=== PATIENT | female | born 1975 | race Caucasian/White ===

== ENCOUNTER 2017-09-30 21:18 | Emergency (ER) | payer OTHER ==
[2017-09-30 21:48] VITALS: BP 113/64
--- NOTE | 2017-09-30 22:23 | UC ---
Throat Pain/Nasal Karthik HPI - HPI Summary HPI Summary: Pt with 3 weeks cough, productive yellow. pt with progressive right ear pain and fullness sinus congestion. no fever, chills rash No cp, sob. + wheeze no abd pain no n/v/d + po + sick contacts + OTC apap, mucinex pt's medications reviewed this visit - History of Current Complaint Chief Complaint: UCRespiratory Stated Complaint: COUGH,CONGESTION,EARS Time Seen by Provider: 09/30/17 22:22 Hx Last Menstrual Period: 2013. Pain Intensity: 2 - Allergies/Home Medications Allergies/Adverse Reactions: Allergies Allergy/AdvReac Type Severity Reaction Status Date / Time codeine Allergy Vomiting Verified 09/30/17 21:56 nitrofurantoin Allergy Hives Verified 09/30/17 21:56 [From Macrobid] pregabalin [From Lyrica] Allergy Numbness Verified 09/30/17 21:56 Sulfa (Sulfonamide Allergy Vomiting Verified 09/30/17 21:56 Antibiotics) PMH/Surg Hx/FS Hx/Imm Hx Previously Healthy: Yes - Surgical History Surgical History: Yes Surgery Procedure, Year, and Place: [facility] , BREAST BIOPSY 10/16/12 [facility] (BIOPSY MARKER ATEK CONDITONAL 1.5- 3T.) - Social History Occupation: Disabled Lives: With Family Alcohol Use: None Substance Use Type: None Smoking Status (MU): Former Smoker Review of Systems Constitutional: Fatigue Skin: Negative Eyes: Negative ENT: Ear Ache, Nasal Discharge, Sinus Congestion Respiratory: Negative Cardiovascular: Negative Gastrointestinal: Negative Genitourinary: Negative Motor: Negative Neurovascular: Negative Musculoskeletal: Negative Neurological: Negative Psychological: Negative All Other Systems Reviewed And Are Negative: Yes Physical Exam Triage Information Reviewed: Yes Appearance: Well-Appearing, No Pain Distress, Well-Nourished Vital Signs: Initial Vital Signs Temp 97.5 F 09/30/17 21:44 Pulse 56 09/30/17 21:44 Resp 16 09/30/17 21:44 BP 113/64 09/30/17 21:44 Pulse Ox 100 09/30/17 21:44 Vital Signs Reviewed: Yes Eye Exam: Normal Eyes: Positive: Conjunctiva Clear ENT: Positive: Hearing grossly normal, Pharyngeal erythema, TM bulging, TM red, Uvula midline, Other - right TM ++ fluid, erythema, left tm mild fluid turbinates inflammed and boggy + PND + erythema no exudate. Negative: Sinus tenderness Dental Exam: Normal Neck exam: Normal Neck: Positive: 1 Respiratory Exam: Normal Respiratory: Positive: Chest non-tender, Lungs clear, Normal breath sounds, No respiratory distress, Other: - cough Cardiovascular Exam: Normal Abdominal Exam: Normal Musculoskeletal Exam: Normal Neurological Exam: Normal Psychological Exam: Normal Skin Exam: Normal Throat Pain/Nasal Course/Dx - Course Course Of Treatment: Pt with 3 weeks progressive URI. now with rightTM. abx. hydrate. motrin/apap. flonase. secretion precaution. return precaution - Differential Dx/Diagnosis Provider Diagnoses: URI. Right OM Discharge - Sign-Out/Discharge Documenting (check all that apply): Discharge - Discharge Plan Condition: Stable Disposition: HOME Prescriptions: Amoxicillin/Clavulanate TAB* [Augmentin TAB 875*] 875 mg PO BID #19 tab Fluconazole [Diflucan 150 MG (NF)] 150 mg PO ONCE PRN #1 tab PRN Reason: yeast infection Fluticasone NASAL SPRAY 50MCG* [Flonase NASAL SPRAY 50MCG*] 2 spray BOTH NARES DAILY #1 btl Patient Education Materials: Ear Infection (ED) Referrals: DEBORAH Ovalle [Primary Care Provider] - Additional Instructions: - Stay well hydrated. Drink plenty of non-alcoholic, non-caffinated beverages. - Alternate ibuprofen (Advil, Motrin) 600mg and Tylenol every 3 hours for pain or fever. Take with food. Do NOT take for more than 4-5 days. - These infections are spread by secretions - do NOT share eating or drinking utensils - clean items you share with other people such as cell phones, computer mouse, TV remote, computer tablets,etc. Once you have been on antibiotics for 2 days, change your toothbrush and your pillowcase. - humidify the air in the room where you sleep - boil water, run a hot steam shower, vaporizer, cups of water by heat register - okay to take over the counter decongestant and cough medication - get plenty of restful sleep. - use nasal spray as instructed - you have been given a script for diflucan - okay to take as needed for yeast infection following your antibiotics - contact your doctor or return with questions or concerns - Billing Disposition and Condition Condition: STABLE Disposition: HOME
[2017-09-30] MEDS ORDERED: Amoxicillin/Clavulanate TAB* 875 MG PO ONE (22:30)
== END 2017-09-30 22:37 | disposition home or self-care (01) ==
LOC: UCCORT 21:18
DX: J06.9 Acute upper respiratory infection, unspecified (principal); H66.91 Otitis media, unspecified, right ear; Z88.1 Allergy status to other antibiotic agents; Z88.5 Allergy status to narcotic agent; Z88.2 Allergy status to sulfonamides; Z88.8 Allergy status to other drugs, medicaments and biological substances; Z87.891 Personal history of nicotine dependence
CPT/HCPCS: 99212; A9270-GY; G0463

== ENCOUNTER 2017-11-09 13:31 | Emergency (ER) | payer OTHER ==
[2017-11-09 14:23] VITALS: BP 110/56
[2017-11-09] MEDS ORDERED: Tetan/Diph/Pertus SYR(Tdap)* 0.5 ML SYR(BOOSTRIX) use SYR IM ONE (14:47)
--- NOTE | 2017-11-09 17:51 | UC ---
Lower Extremity/Ankle HPI - HPI Summary HPI Summary: Pt. is a 42 y.o female who presents to the ER for a left leg injury that occurred today. Pt. states she has a hx of back issues and is following with neurosx. She is scheduled for an MRI. She noted chronic tingling in legs. She notes today she stepped into an open floor vent at her house and fell forward. Is able to ambulate with pain. Abrasions to left lower leg. Unaware of last tetanus immunization. No head injury. Symptoms are mild in severity. Walking makes symptoms worse. Rest makes symptoms better. - History of Current Complaint Chief Complaint: UCBackPain Stated Complaint: LOWER BACK Time Seen by Provider: 11/09/17 14:22 Hx Obtained From: Patient Hx Last Menstrual Period: 2013. Pain Intensity: 6 Pain Scale Used: 0-10 Numeric - Allergies/Home Medications Allergies/Adverse Reactions: Allergies Allergy/AdvReac Type Severity Reaction Status Date / Time codeine Allergy Vomiting Verified 11/09/17 14:14 methylprednisolone Allergy See Comment Verified 11/09/17 14:14 [From Solu-Medrol] nitrofurantoin Allergy Hives Verified 11/09/17 14:14 [From Macrobid] pregabalin [From Lyrica] Allergy Numbness Verified 11/09/17 14:14 Sulfa (Sulfonamide Allergy Vomiting Verified 11/09/17 14:14 Antibiotics) PMH/Surg Hx/FS Hx/Imm Hx Previously Healthy: Yes - Surgical History Surgical History: Yes Surgery Procedure, Year, and Place: RT BREAST BIOPSY 03/12 [place] [facility] BREAST BIOPSY 10/16/12 [facility] (BIOPSY MARKER ATEK CONDITONAL 1.5- 3T.). Hysterectomy - Social History Alcohol Use: None Substance Use Type: None Smoking Status (MU): Former Smoker Review of Systems Neurovascular: Negative Musculoskeletal: Other: - Pain to left leg. Abrasions to left lower leg. Neurological: Paresthesia - Chronic paresthesias to legs. Is Patient Immunocompromised?: No All Other Systems Reviewed And Are Negative: Yes Physical Exam Triage Information Reviewed: Yes Appearance: Well-Appearing - Pt. sitting on chair in NAD. Mother present. Vital Signs: Initial Vital Signs Temp 97.7 F 11/09/17 14:15 Pulse 68 11/09/17 14:15 Resp 17 11/09/17 14:15 BP 110/56 11/09/17 14:15 Pulse Ox 99 11/09/17 14:15 Eye Exam: Normal Neck: Positive: Supple Musculoskeletal: Positive: Other: - 5/5 strength in bilateral lower extremities. Superficial abrasions to left lower leg. No bony tenderness to foot , ankle, or knee. Neurological Exam: Normal Skin: Positive: Other - Abrasions to left lower leg. Lower Extremity Course/Dx - Course Course Of Treatment: Pt. presenting for evaluation of a left leg injury. She did sustained superficial abrasions. Wounds were cleaned and dressed. Tetanus updated. She has no bony tenderness on exam. No xrays ordered. Advised tylenol or motrin for pain as directed. To ice and elevate. Close f.u with PCP. - Differential Dx/Diagnosis Differential Diagnosis/HQI/PQRI: Fracture (Closed), Sprain, Strain Provider Diagnoses: 1. Leg sprain 2. Abrasion Discharge - Sign-Out/Discharge Documenting (check all that apply): Discharge/Admit/Transfer - Discharge Plan Condition: Good Disposition: HOME Patient Education Materials: Abrasion (ED), Leg Sprain (ED) Referrals: Mireya Treviño MD [Primary Care Provider] - Additional Instructions: Follow up with PCP Keep wounds clean and dry Tylenol or Motrin for pain as directed Return to UC or go to ER if symptoms change or worsen - Billing Disposition and Condition Condition: GOOD Disposition: HOME
== END 2017-11-09 15:10 | disposition home or self-care (01) ==
LOC: UCCORT 13:31
DX: S86.812A Strain of other muscle(s) and tendon(s) at lower leg level, left leg, initial encounter (principal); S80.812A Abrasion, left lower leg, initial encounter; W17.89XA Other fall from one level to another, initial encounter; Y93.9 Activity, unspecified; Y92.009 Unspecified place in unspecified non-institutional (private) residence as the place of occurrence of the external cause; Z88.5 Allergy status to narcotic agent; Z88.2 Allergy status to sulfonamides; Z88.8 Allergy status to other drugs, medicaments and biological substances; Z87.891 Personal history of nicotine dependence
CPT/HCPCS: 90715; 99211; G0463

== ENCOUNTER 2019-01-05 21:25 | Emergency (ER) | payer SELFPAY ==
[2019-01-05 21:48] VITALS: BP 119/66
--- NOTE | 2019-01-05 22:57 | UC ---
Lower Extremity/Ankle HPI - HPI Summary HPI Summary: 43-year-old woman comes in with a chief complaint of right ankle and foot pain. 2 days ago she rolled her right ankle with an inversion. Pain is primarily in the lateral aspect of the ankle but also goes into the foot. She has been able to walk on it but with pain. Patient has a chronic neuropathy of the leg that's been investigated by neurosurgery. No new numbness no new weakness. - History of Current Complaint Chief Complaint: UCLowerExtremity Stated Complaint: RIGHT ANKLE CONCERN Time Seen by Provider: 01/05/19 22:46 Hx Last Menstrual Period: 2013. Pain Intensity: 7 - Allergies/Home Medications Allergies/Adverse Reactions: Allergies Allergy/AdvReac Type Severity Reaction Status Date / Time codeine Allergy Vomiting Verified 01/05/19 21:40 fluoxetine [From Prozac] Allergy See Comment Verified 01/05/19 21:40 methylprednisolone Allergy See Comment Verified 01/05/19 21:40 [From Solu-Medrol] nitrofurantoin Allergy Hives Verified 01/05/19 21:40 [From Macrobid] pregabalin [From Lyrica] Allergy Numbness Verified 01/05/19 21:40 Sulfa (Sulfonamide Allergy Vomiting Verified 01/05/19 21:40 Antibiotics) PMH/Surg Hx/FS Hx/Imm Hx Previously Healthy: Yes - CHRONIC RT LEG PARESTHESIA Endocrine History: Hypothyroidism - Surgical History Surgical History: Yes Surgery Procedure, Year, and Place: RT BREAST BIOPSY 03/[address] [place] [address] [facility] [place]. LT BREAST BIOPSY 10/16/12 [facility] (BIOPSY MARKER ATEK CONDITONAL 1.5-3T.);. HYSTERECTOMY - Family History Known Family History: Positive: Non-Contributory - Social History Alcohol Use: None Substance Use Type: None Smoking Status (MU): Former Smoker Review of Systems All Other Systems Reviewed And Are Negative: Yes Constitutional: Positive: Negative Skin: Positive: Negative Eyes: Positive: Negative ENT: Positive: Negative Respiratory: Positive: Negative Cardiovascular: Positive: Negative Gastrointestinal: Positive: Negative Motor: Positive: Other - SEE HPI Neurovascular: Positive: Other - SEE HPI Musculoskeletal: Positive: Other: - SEE HPI Neurological: Positive: Other - SEE HPI Psychological: Positive: Negative Is Patient Immunocompromised?: No Physical Exam Triage Information Reviewed: Yes Appearance: Well-Appearing, No Pain Distress, Well-Nourished Vital Signs: Initial Vital Signs Temp 97.2 F 01/05/19 21:40 Pulse 52 01/05/19 21:40 Resp 16 01/05/19 21:40 BP 119/66 01/05/19 21:40 Pulse Ox 99 01/05/19 21:40 Vital Signs Reviewed: Yes Eye Exam: Normal Eyes: Positive: Conjunctiva Clear Neck: Positive: Supple Respiratory: Positive: No respiratory distress Musculoskeletal: Positive: Other: - Right ankle is swollen the lateral aspect and tender to palpation the lateral aspect of the ankle and also the lateral aspect of the midfoot. Normal capillary refill normal dorsalis pedis pulse. Achilles tendon is intact and nontender. Ankle and toes have full range of motion. Neurological: Positive: Alert Psychological: Positive: Age Appropriate Behavior Skin Exam: Normal Lower Extremity Course/Dx - Course Course Of Treatment: I discussed the x-rays with the patient. I do not see a fracture radiologist reading is pending. Patient was placed in an Stanislav wrap adjustment by nursing patient neurovascular intact after placement. Also give the patient a cane. Plan is ice elevation anti-inflammatories and follow-up with either orthopedics or sports medicine if not completely improved. - Differential Dx/Diagnosis Provider Diagnosis: Right ankle sprain, Right foot sprain Discharge - Sign-Out/Discharge Documenting (check all that apply): Patient Departure All imaging exams completed and their final reports reviewed: No - Discharge Plan Condition: Stable Disposition: HOME Patient Education Materials: Ankle Sprain (ED), Foot Sprain (ED) Referrals: Anne Us MD [Primary Care Provider] - Ever Sanchez MD [Medical Doctor] - [facility] [Provider Group] Additional Instructions: FOLLOW UP WITH ORTHOPEDICS OR SPORTS MEDICINE IF NOT COMPLETELY IMPROVED. GET REEVALUATED SOONER IF WORSE OR ANY QUESTIONS OR CONCERNS. - Billing Disposition and Condition Condition: STABLE Disposition: Home
--- NOTE | 2019-01-06 09:05 | UC ---
- Progress Note Progress Note: xray report right ankle / right foot: REPORT AND IMPRESSION: #. Normal articular alignment at the ankle and foot. #. Negative for fracture or osteochondral lesion. #. 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 Remaining joint spaces are unremarkable. #. Soft tissue swelling most prominent over the medial aspect of the ankle through mid foot. Course/Dx - Diagnoses Provider Diagnoses: Right ankle sprain, Right foot sprain Discharge - Sign-Out/Discharge Documenting (check all that apply): Patient Departure All imaging exams completed and their final reports reviewed: Yes - Discharge Plan Condition: Stable Disposition: HOME Patient Education Materials: Ankle Sprain (ED), Foot Sprain (ED) Referrals: [facility] [Provider Group] Ever Sanchez MD [Medical Doctor] - Anne Us MD [Primary Care Provider] - Additional Instructions: FOLLOW UP WITH ORTHOPEDICS OR SPORTS MEDICINE IF NOT COMPLETELY IMPROVED. GET REEVALUATED SOONER IF WORSE OR ANY QUESTIONS OR CONCERNS. - Billing Disposition and Condition Condition: STABLE Disposition: Home
== END 2019-01-05 23:08 | disposition home or self-care (01) ==
LOC: UCCORT 21:25
DX: S93.401A Sprain of unspecified ligament of right ankle, initial encounter (principal); S93.601A Unspecified sprain of right foot, initial encounter; X50.1XXA Overexertion from prolonged static or awkward postures, initial encounter; Y92.9 Unspecified place or not applicable; M19.071 Primary osteoarthritis, right ankle and foot; G90.09 Other idiopathic peripheral autonomic neuropathy; Z88.1 Allergy status to other antibiotic agents; Z88.5 Allergy status to narcotic agent; Z88.2 Allergy status to sulfonamides; Z88.8 Allergy status to other drugs, medicaments and biological substances; Z87.891 Personal history of nicotine dependence
CPT/HCPCS: 99213; G0463

== ENCOUNTER 2019-09-22 13:58 | Emergency (ER) | payer OTHER ==
--- NOTE | 2019-09-22 14:24 | UC ---
Telehealth HPI HPI Summary: sore throat x 1 days pain is 4 out of 10 , worse with swallowing, better with Tylenol dry cough for 1 week, mild nasal congestion , denies any chest pain , no sob , no fever, no chills or body aches no recent travels, her son was tested for COVID19 with negative results no know COVID19 contact Telehealth PMH Endocrine/Hematology History: Reports: Hx Thyroid Disease Denies: Hx Diabetes Cardiovascular History: Denies: Hx Hypertension, Hx Pacemaker/ICD Respiratory History: Denies: Hx Asthma History: Denies: Hx Renal Disease Sensory History: Denies: Hx Hearing Aid Psychiatric History: Reports: Hx Panic Disorder - Cancer History Cancer Type, Location and Year: hypothyroid, anemic, vit D difficency - Surgical History Surgery Procedure, Year, and Place: RT BREAST BIOPSY 03/12 [place] AT [facility] ,. LT BREAST BIOPSY 10/16/12 [facility] (BIOPSY MARKER ATEK CONDITONAL 1.5-3T.);. HYSTERECTOMY Infectious Disease History: No - Family History Known Family History: Positive: Non-Contributory - Social History Alcohol Use: Occasionally Substance Use Type: Reports: None Smoking Status (MU): Former Smoker Telehealth ROS All Other Systems Reviewed And Are Negative: Yes Negative: Fever, Chills, Fatigue Eyes: Negative Positive: Sore Throat Positive: Cough. Negative: Shortness Of Breath Telehealth PE Telehealth Physical Exam: contacted the pt. via Zoom no vitals, no Physical exam was done Appearance: Positive: Well-Appearing, No Pain Distress Telehealth Course/Dx Provider Diagnoses: Pharyngitis Telehealth Disposition Provider Recommendation for Treatment: Urgent Care Telehealth Visit: Patient Consented Verbally to Telehealth Visit Telehealth Patient Statement: The patient should understand that they are communicating with their provider via a secure communication platform and that all the same privacy and confidentiality rules apply. They will also be responsible for copayments or coinsurances that apply to any Telehealth visit. Patient Identifiers: 2 Patient Identifiers Verified for Telehealth Visit Telehealth Visit Start Time: 14:00 Telehealth Visit End Time: 14:30 Telehealth Provider Attestation: The above services were appropriate to provide in a Telehealth setting.
== END 2019-09-22 14:38 | disposition home or self-care (01) ==
LOC: UCCORT 13:58
DX: J02.9 Acute pharyngitis, unspecified (principal); R05 Cough; E03.9 Hypothyroidism, unspecified; Z79.890 Hormone replacement therapy; Z87.891 Personal history of nicotine dependence
CPT/HCPCS: 87651; 99211; G0463; Q3014